=== PATIENT | female | born 1985 | race Two or more races ===

== ENCOUNTER 2017-03-10 11:26 | Emergency (ER) | payer SELFPAY ==
--- NOTE | ~2017-03-10 | ER ---
PATIENT'S NAME: [facility] AGE: 31 Y [address] ROOM: [place] [address] LOCATION: ED ADMIT DATE: 03/10/2017 ER/Outpatient Report DISCHARGE DATE: 03/10/2017 FAMILY PHYSICIAN: Sanchez Talavera MD ATTENDING PHYSICIAN: Cezar Del Cid Time of Arrival: 1131 hours. Time of Exam: 12 noon. CHIEF COMPLAINT: Possible STD. HISTORY OF PRESENT ILLNESS: The patient states that her boyfriend confessed last night that he slept with a girl couple of months ago, who was positive for sexually transmitted disease and has since slept with her unprotected, and she is concerned that she may have an STD. She has had kind of a whitish discharge vaginally for the last couple of weeks and does have some discomfort when she tries to start her urine stream. She has not had fever or chills. No nausea, vomiting, or diarrhea. Last bowel movement was today and was normal, and last period was a month ago. ALLERGIES: SHE HAS NO KNOWN ALLERGIES. CURRENT MEDICATIONS: None. PAST MEDICAL HISTORY: Benign. She is a 7, para 7. PAST SURGERIES: None. SOCIAL HISTORY: Denies use of tobacco, drugs, or alcohol. REVIEW OF SYSTEMS: All negative other than those mentioned in the HPI. PHYSICAL EXAMINATION: VITAL SIGNS: She weighed 68.4 kg. Blood pressure is 150/106, pulse of 104, respirations 16, temperature of 96.9, and O2 saturation is 97% on room air. GENERAL: She is awake, alert, and oriented x4. SKIN: [place], warm, and dry. PATIENT'S NAME: JAVIER EMERSON [facility] AGE: 31 Y [address] ROOM: [place] [address] LOCATION: [facility] ADMIT DATE: 03/10/2017 ER/Outpatient Report DISCHARGE DATE: 03/10/2017 FAMILY PHYSICIAN: Sanchez Talavera MD ATTENDING PHYSICIAN: Cezar Del Cid RESPIRATIONS: Even and nonlabored. Lung sounds are clear throughout. HEART: Regular rate and rhythm. ABDOMEN: Soft, nondistended. Bowel sounds are present. EMERGENCY ROOM COURSE: She was able to urinate and give us a urine sample. It is negative for infection, negative for , positive for chlamydia. The patient was given Rocephin 1 g IM and a script was sent home with her for azithromycin. Her blood pressure did come down with the wait. Blood pressure was 140/88. She continues to have no discomfort. IMPRESSION: Chlamydia. PLAN: Home. Rest. Take the azithromycin as prescribed. I did talk with her about her partner also being treated. She verbalized understanding. STEPHANY KELLY APRN FOR MD RAMU AGUILAR/ward /[id number] d: 03/10/171811 t: 03/15/17731, OUTPATIENT REPORT
[~2017-03-10 11:26] MED LIST: ACETAMINOPHEN325 MG PO; DERMOPLAST SPRA56 GM TOP; MOTRIN800 MG PO; PRENATAL 1+1)(P1 TAB PO; SURFAK240 MG PO; WOMEN'S LAXATIVE5 M1 PO
[2017-03-10 12:16] LABS: BILIRUBIN URINE NEGATIVE (NEGATIVE); BLOOD URINE NEGATIVE /UL (NEGATIVE); COLOR URINE YELLOW (YELLOW); GLUCOSE URINE NEGATIVE (NEGATIVE); KETONE URINE NEGATIVE (NEGATIVE); LEUKOCYTES URINE NEGATIVE /UL (NEGATIVE); NITRITE URINE NEGATIVE (NEGATIVE); PROTEIN URINE NEGATIVE (NEGATIVE); TURBIDITY URINE CLEAR (CLEAR); UROBILINOGEN URINE NORMAL (NORMAL)
== END 2017-03-10 14:52 | disposition disaster alternative care site (69) ==
LOC: GMED 11:26
PROVIDERS: Nurse Practitioner Family
DX: A56.2 Chlamydial infection of genitourinary tract, unspecified (principal)
CPT/HCPCS: J0696

== ENCOUNTER 2017-03-18 12:28 | Emergency (ER) | payer SELFPAY ==
--- NOTE | ~2017-03-18 | ER ---
PATIENT'S NAME: [facility] AGE: 31 Y [address] ROOM: [place] [address] LOCATION: ED ADMIT DATE: 03/18/2017 ER/Outpatient Report DISCHARGE DATE: 03/18/2017 FAMILY PHYSICIAN: Sanchez Talavera MD ATTENDING PHYSICIAN: Cezar Del Cid Time of Arrival: 1245 hours. Time of Evaluation: 1245 hours. CHIEF COMPLAINT: Urine incontinence. HISTORY OF PRESENT ILLNESS: The patient states she was seen here last week for STD. She was given a shot. She was given a prescription, but she did not get it filled as she could not afford it. The patient states since yesterday, she has had several episodes where she will have urine run down her leg. States that she has trouble starting her stream at times. She has had some nausea, has had some diarrhea. She has had some fever and chills. No pain with urination. Just difficulty getting her stream to start at times. She does have some pain in the mid epigastric abdominal area also. ALLERGIES: NO KNOWN ALLERGIES. MEDICATIONS: No current medications. PAST MEDICAL HISTORY: Positive for chlamydia last week. PAST SURGICAL HISTORY: Negative. SOCIAL HISTORY: She does smoke but denies use of drugs and alcohol. REVIEW OF SYSTEMS: All negative other than those mentioned in the HPI. PHYSICAL EXAMINATION: VITAL SIGNS: She weighs 67.5 kg, blood pressure is 152/107, pulse of 102, respirations 20, temperature of 98, O2 saturation is 97% on room air. GENERAL: She is awake, alert, and oriented x4. SKIN: [place], warm, and dry. PATIENT'S NAME: JAVIER EMERSON [facility] AGE: 31 Y [address] ROOM: [place] [address] LOCATION: ED ADMIT DATE: 03/18/2017 ER/Outpatient Report DISCHARGE DATE: 03/18/2017 FAMILY PHYSICIAN: Sanchez Talavera MD ATTENDING PHYSICIAN: Cezar Del Cid RESPIRATIONS: Even and nonlabored. Lung sounds are clear throughout. HEART: Regular rate and rhythm. ABDOMEN: Soft, nondistended. Bowel sounds are present. She is tender in the mid epigastric right upper quadrant area. EXTREMITIES: She walks with a steady even gait. LABORATORY DATA AND X-RAYS: She was able to urinate and give us a urine sample. Clean-catch UA is positive for leukocytes, 5-10 white blood cells, and moderate bacteria. EMERGENCY DEPARTMENT COURSE: The patient was given azithromycin 1000 mg p.o. here in the ER to treat the chlamydia that she was diagnosed with last week that she did not get treated for. IMPRESSION: Urinary tract infection. PLAN: The patient was given a script for ciprofloxacin 500 mg. I did discuss with her that this medicine is on the list of free medications available at [facility] and recommend that she get it filled there. She is to follow up with her primary provider. I did give her the information for the [facility] if she needs assistance finding a provider with [facility]. She verbalized understanding. STEPHANY KELLY APRN FOR MD RAMU AGUILAR/ward /[id number] d: 03/18/172040 t: 04/01/17 0959, OUTPATIENT REPORT
[2017-03-18 13:08] LABS: BILIRUBIN URINE NEGATIVE (NEGATIVE); BLOOD URINE NEGATIVE /UL (NEGATIVE); COLOR URINE YELLOW (YELLOW); GLUCOSE URINE NEGATIVE (NEGATIVE); KETONE URINE NEGATIVE (NEGATIVE); LEUKOCYTES URINE 500 /UL (NEGATIVE); NITRITE URINE NEGATIVE (NEGATIVE); PROTEIN URINE 30 mg/dL (NEGATIVE); TURBIDITY URINE 1+ (CLEAR); UROBILINOGEN URINE NORMAL (NORMAL)
[2017-03-18 13:15] LABS: AMORPHOUS URINE 2+ (NEGATIVE); BACTERIA URINE MODERATE (NEGATIVE); MUCUS URINE 2+ (NEGATIVE); RBC URINE RARE #/HPF (NEGATIVE)
== END 2017-03-18 14:01 | disposition disaster alternative care site (69) ==
LOC: GMED 12:28
PROVIDERS: Nurse Practitioner Family
DX: N39.0 Urinary tract infection, site not specified (principal); F17.210 Nicotine dependence, cigarettes, uncomplicated

== ENCOUNTER → 2017-03-21 | Outpatient (CLI) | payer SELFPAY | END | disposition disaster alternative care site (69) | LOC: GRAD 08:44 | DX: R11.0 Nausea (principal); K80.10 Calculus of gallbladder with chronic cholecystitis without obstruction; R10.31 Right lower quadrant pain; R68.81 Early satiety ==

== ENCOUNTER 2017-03-24 13:57 | Emergency (ER) | payer SELFPAY ==
--- NOTE | ~2017-03-24 | ER ---
PATIENT'S NAME: JAVIER LEDEZMA [facility] AGE: 31 Y [address] ROOM: [place] [id number] LOCATION: [facility] ADMIT DATE: 03/24/2017 ER/Outpatient Report DISCHARGE DATE: 03/24/2017 FAMILY PHYSICIAN: Sanchez Talavera MD ATTENDING PHYSICIAN: Cezar Casillas CHIEF COMPLAINT: Nausea and vomiting. HISTORY OF PRESENT ILLNESS: Ms. Ledezma knows that she did not feel well today after she had her dose of medication. She has some discomfort in the abdomen and states that she thinks it is related to her new medication ciprofloxacin. She was seen a few days ago and started on this. She told the initial examiner that she has been taking it normally and she told me she had only started this morning. She notes that she has had upper abdominal pain on and off for 1 week. Today, she vomited. She does smoke a little bit. No other acute findings. PAST MEDICAL HISTORY: Documented on the record and reviewed by me. SOCIAL HISTORY: Documented on the record and reviewed by me. MEDICATIONS: Documented on the record and reviewed by me. ALLERGIES: DOCUMENTED ON THE RECORD AND REVIEWED BY ME. REVIEW OF SYSTEMS: All systems were reviewed and negative except as noted in the HPI. PHYSICAL EXAMINATION: VITAL SIGNS: Blood pressure 165/56, pulse 105, respiratory rate 16, temperature 97.9, SpO2 is 96% on room air. Pain is rated as 7/10. GENERAL: An age-appropriate female, sitting upright on exam table. No apparent pain or distress. NEUROLOGIC: Awake and alert. GCS 15. No focal deficits. No asymmetry. HEENT: Normocephalic, atraumatic. Eyes are PERRL. Oropharynx is clear. NECK: Supple. Trachea is midline. CHEST/HEART: Regular rate and rhythm with no murmurs. LUNGS: Clear to auscultation bilaterally. No rhonchi, wheezes, or rales. ABDOMEN: Soft, nontender, and nondistended. No rebound or guarding. BACK: Normal to inspection and palpation. PATIENT'S NAME: JAVIER LEDEZMA [facility] AGE: 31 Y [address] ROOM: [place], [place] [address] LOCATION: [facility] ADMIT DATE: 03/24/2017 ER/Outpatient Report DISCHARGE DATE: 03/24/2017 FAMILY PHYSICIAN: Sanchez Talavera MD ATTENDING PHYSICIAN: Cezar Casillas EXTREMITIES: Warm and well perfused. SKIN: Clean, dry, and intact. LABORATORY DATA AND X-RAYS: No imaging was obtained. Urinalysis with positive leukocytes, a few epithelials and few whites, no bacteria. Remainder of her labs, CBC with no appreciable abnormalities, CMS with no appreciable abnormalities, amylase and lipase within normal limits, and HCG is undetectable. IMPRESSION: 1. Adverse reaction to ciprofloxacin. 2. Known history of cholelithiasis, asymptomatic currently. EMERGENCY DEPARTMENT COURSE: The patient was seen and evaluated as above. She was given fluids and Zofran. She was transitioned to Macrobid. Encouraged hydration. She was discharged before urine return. Hopefully, this will make her feel better overall. It does not appear as though she has urinary tract infection today; however, we will have her complete a course of antibiotics as there was concern for same recently. All questions were answered and the patient was discharged in good condition. CEZAR CASILLAS MD JH/modl /[id number] d: 03/25/1752 t: 04/01/17 0959, OUTPATIENT REPORT
[2017-03-24 14:42] LABS: BASOPHIL % 0.1 %; EOSINOPHIL # 0.4 K/uL (0.0-0.5); EOSINOPHIL % 5.2 %; HEMATOCRIT 38.1 % (33.0-46.0); HEMOGLOBIN 12.5 g/dL (11.0-15.0); IMMATURE GRANULOCYTE % 0.1 %; LYMPHOCYTE # 1.6 K/uL (0.8-4.0); LYMPHOCYTE % 22.6 %; MCH 27.7 pg (27.0-34.0); MCHC 32.8 gm/dL (32.0-36.5); MCV 84.3 fl (83.0-98.0); MONOCYTE # 0.5 K/uL (0.0-1.0); MONOCYTE % 7.3 %; MPV 10.9 fl (9.4-12.4); NEUTROPHIL # (ANC) 4.6 K/uL (1.8-7.8); NEUTROPHIL % 64.7 %; NRBC % 0 /100WBC (0-0.00); PLATELET COUNT 245 K/uL (150-450); RBC 4.52 M/uL (3.50-5.00); RDW-CV 14.7 % (11.9-14.6); WBC 7.1 K/uL (4.0-11.0)
[2017-03-24 15:04] LABS: ALBUMIN 3.7 gm/dL (3.5-5.0); ALK PHOS 104 IU/L (33-138); ALT 19 IU/L (12-78); ANION GAP 11.6 (10.0-19.0); AST 17 IU/L (10-40); BLOOD UREA NITROGEN 7 mg/dL (6-24); CALCIUM 8.4 mg/dL (8.5-10.5); CHLORIDE 108 mMol/L (96-110); CO2 24 mMol/L (22-32); CREATININE 0.8 mg/dL (0.5-1.1); POTASSIUM 3.6 mMol/L (3.7-5.1); SODIUM 140 mMol/L (135-145); TOTAL BILIRUBIN 0.4 mg/dL (0.0-1.5); TOTAL PROTEIN 7.7 g/dL (6.0-8.4)
[2017-03-24 16:05] LABS: BILIRUBIN URINE NEGATIVE (NEGATIVE); BLOOD URINE NEGATIVE /UL (NEGATIVE); COLOR URINE YELLOW (YELLOW); GLUCOSE URINE NEGATIVE (NEGATIVE); KETONE URINE NEGATIVE (NEGATIVE); LEUKOCYTES URINE 100 /UL (NEGATIVE); NITRITE URINE NEGATIVE (NEGATIVE); PROTEIN URINE NEGATIVE (NEGATIVE); SPEC GRAVITY URINE 1.005 (1.003-1.035); TURBIDITY URINE CLEAR (CLEAR); UROBILINOGEN URINE NORMAL (NORMAL)
[2017-03-24 16:28] LABS: BACTERIA URINE NEGATIVE (NEGATIVE); RBC URINE NEGATIVE #/HPF (NEGATIVE)
== END 2017-03-24 16:04 | disposition disaster alternative care site (69) ==
LOC: GMED 13:57
PROVIDERS: Emergency Medicine
DX: R11.2 Nausea with vomiting, unspecified (principal); T36.8X5A Adverse effect of other systemic antibiotics, initial encounter; F17.210 Nicotine dependence, cigarettes, uncomplicated; Z87.19 Personal history of other diseases of the digestive system; Z79.2 Long term (current) use of antibiotics
CPT/HCPCS: J2405; J7030